=== PATIENT | male | born 1980 | race Caucasian/White ===

== ENCOUNTER → 2016-06-25 | Day surgery (SDC) | payer BC ==
[2016-06-22 15:44] VITALS: Ht 188 cm; Wt 131.8 kg
[~2016-06-25] VITALS: Ht 188 cm; Wt 131.8 kg
[~2016-06-25] MED LIST: ATROPINE SULFATE 0.1 MG/ML 5ML SYR IV PRN; BENZOIN SPRAY 118 ML BTL TOP ONE; BUPIVACAINE/EPINEPHRINE 0.5% MPF 1:200,000 30 ML VIAL ONE; CEFAZOLIN 3000 MG/65 ML D5W IV SCH; DOCU-94 PO; FENTANYL CITRATE INJ 50 MCG/1 ML 2 ML VIAL IV PRN; FENTANYL CITRATE INJ 50 MCG/1 ML 2 ML VIAL ONE; HYDR-5688 PO; HYDROCODONE/ACETAMOPHEN 5/325MG TAB PO PRN; IBUPROFEN 600 MG TAB PO PRN; KETAMINE HCL INJ 50 MG/ML 10 ML VIAL ONE; KETOROLAC TROMETHAMINE 30 MG/ML VIAL IV. PRN; LACTATED RINGER'S 1000ML 1,000 ML IV SCH; LIDOCAINE HCL 2% 2 ML VIAL (20MG/ML) ONE; MIDAZOLAM HCL 1 MG/ML 2ML VIAL ONE; NITR1OIN TOP; ONDANSETRON INJ 2 MG/ML 2 ML VIAL IV PRN; POLY335019 PO; PROPOFOL IV EMULSION 10 MG/ML 20 ML VIAL IV ONE; SODIUM CHLORIDE 0.9% 1000ML 1,000 ML IV SCH; SULF800T23 PO
--- NOTE | 2016-06-25 10:02 | History & Physical Bridge Note ---
H&P Re-Evaluation Bridge Note: I have examined the patient, reviewed the History & Physical and in the interval since the performance of the History & Physical I have noted the following changes of clinical significance: No changes noted
--- NOTE | 2016-06-25 10:08 | Discharge Instructions ---
Discharge Instructions Admission Reason for Admission: Anal Fissure Discharge Discharge Diagnosis / Problem: Anal Fissure Discharge Goals Goal(s): Decrease discomfort, Improve function Activity Recommendations Activity Limitations: as noted below Lifting Limitations: no more than 10 pounds Exercise/Sports Limitations: until after follow-up appointment May Resume Sexual Activity: after follow-up appointment Shower/Bathe: tomorrow . Instructions / Follow-Up Instructions / Follow-Up Please follow-up with Dr. Pryor in the office in 1-2 weeks. Any questions or concerns please call the office at [phone]. Current Hospital Diet Patient's current hospital diet: Discharge Diet Recommended Diet: Regular Diet Pending Studies Studies pending at discharge: no Medical Emergencies . Who to Call and When: Medical Emergencies: If at any time you feel your situation is an emergency, please call 911 immediately. . Non-Emergent Contact Non-Emergency issues call your: Primary Care Provider, Surgeon Call Non-Emergent contact if: temperature is above 101, your pain is not controlled, wound has increased drainage, wound has increased redness . "Provider Documentation" section prepared by Leonie Ta. VTE Core Measure Inpt VTE Proph given/why not?: Unfractionated heparin SQ, SCD's
[2016-06-25 10:43] VITALS: TEMP 36.6
--- NOTE | 2016-06-25 10:49 | [facility] Operative Report ---
Operative Report Operative Date Jun 25, 2016. Pre-Operative Diagnosis infected sebaceous cyst; chronic anal fissure Post-Operative Diagnosis same Procedure(s) Performed rectal exam under anesthesia; excision of 3.5 cm sebaceous cyst Surgeon Dr. Zhao Pryor Boiler Washer Surgeon(s) JEANNA Patiño Estimated Blood Loss 10 cc Findings infected sebaceous cyst chronic anal fissure Specimens A. Sebaceous Cyst Left Buttock Culture of Sebaceous Cyst Left Buttock Anesthesia MAC/local Complication(s) None Disposition Recovery Room / PACU I attest to the content of the Intraoperative Record and any orders documented therein. Any exceptions are noted below.
--- NOTE | 2016-06-25 11:12 | OPERATIVE REPORT ---
DATE OF OPERATION: 06/25/2016 PREOPERATIVE DIAGNOSIS: Recurrently infected sebaceous cyst of the left buttock as well as a history of chronic anal fissure. POSTOPERATIVE DIAGNOSIS: Same. PROCEDURE: Excision of sebaceous cyst, left buttock, approximately 3.5 cm as well as a rectal exam under anesthesia. SURGEON: Dr. Pryor. MEMBERSHIP MANAGER: Leonie Ta PA-C. ESTIMATED BLOOD LOSS: Less than 5 mL. COMPLICATIONS: No immediate. ANESTHESIA: Monitored anesthesia care with local Marcaine. DESCRIPTION OF PROCEDURE: After informed consent was obtained, the patient was taken to the operating suite, placed in a prone position. IV sedation was administered by anesthesia and titrated to effect. After adequate sedation, the buttock area was sterilely prepped and draped with Betadine solution. We began by excising the visible draining cyst. We did culture some of the fluid in the center of it. I was able to make a wide enough ellipse with a 15 blade scalpel and then used electrocautery to come down through normal soft tissue and come underneath what was a probably 3.5 cm cyst. I was able to take the whole thing out in 1 big piece and pass it off to be sent to pathology. We controlled any bleeding in the wound bed with electrocautery and then thoroughly irrigated the wound. I closed it with 3-0 Prolene in simple interrupted fashion, leaving some space for drainage if needed. The tissue I reapproximated was not inflamed or infected and was normal appearing tissue. I then did do a very quick rectal exam with his history of chronic fissure. There was a chronic visible anal fissure. I did not see any associated fistula, etc. At this time, he is pursuing conservative therapy regarding the fissure. We could address this in the future if need be. I attest to the content of the Intraoperative Record and any orders documented therein. Any exceptio ns are noted below.
[2016-06-25 11:15] VITALS: BP 139/66; PULSE 70; O2SAT 96
--- NOTE | 2016-06-25 11:27 | Anesthesia Progress Nt - [facility] ---
Anesthesia Post Op Note Date & Time Jun 25, 2016 at 11:27 Vital Signs Pain Intensity: 0 Vital Signs Past 12 Hours Date Time Temp Pulse Resp B/P Pulse Ox O2 Delivery O2 Flow Rate FiO2 06/25/16 11:15 70 14 139/66 96 Room Air 06/25/16 10:43 36.6 65 16 142/81 99 Room Air 06/25/16 08:02 36.3 68 18 130/100 98 Room Air Notes Mental Status: alert / awake / arousable, participated in evaluation Pt Amnestic to Procedure: Yes Nausea / Vomiting: adequately controlled Pain: adequately controlled Airway Patency, RR, SpO2: stable & adequate BP & HR: stable & adequate Hydration State: stable & adequate Anesthetic Complications: no major complications apparent
== END | disposition home or self-care (01) ==
LOC: X.SURG 07:55
PROVIDERS: ATTEND Surgery
DX: L03.317 Cellulitis of buttock (principal); K60.2 Anal fissure, unspecified